=== PATIENT | male | born 1995 | race Caucasian/White ===

== ENCOUNTER 2022-02-01 01:48 | Emergency (ER) | payer SELFPAY ==
[~2022-02-01] VITALS: Ht 172.7 cm; Wt 80.3 kg
[2022-02-01 01:55] VITALS: BP 138/75
--- NOTE | 2022-02-01 01:55 | NUR ---
ARRIVAL AMBULATED TO ROOM. 24 HOURS AGO ABDOMINAL PAIN/CRAMPING, WITH NNAUSEA/VOMNITING, CHEST PAIN, COUGH, AFEBRILE. C/O ABDOMINAL PAIN 6/10 ON NUMERICAL SCALE. ALERT AND ORIENTED X3. GAIT STEADY. DR. BAIN AT BEDSIDE. AWAITING ORDERS AT THIS TIME. RR-20, O2 SAT 100%, HR-91, B/P 138/75.
--- NOTE | 2022-02-01 02:19 | ER.PDOC ---
General Chief Complaint: Dyspnea/Respdistress Stated Complaint: ABD & CHEST PAIN Time seen by MD: 01:55 Source: patient Exam Limitations: no limitations History of Present Illness Initial Comments This 26-year-old male stated that he was sent in by his boss to make sure he does not have COVID. Patient complains of having abdominal pain and chest pain but on further questioning patient had nausea vomiting and diarrhea that started 24 to 26 hours ago. He states he had 2 bouts of just profuse watery diarrhea. He stated that he had multiple episodes of vomiting where he was just dry heaving after his stomach was empty. Subsequent to all of his vomiting, he has had chest pain that it hurts when he takes a deep breath or twists or turns certain ways. Patient states that he still has some nausea but has not had any vomiting for at least 6 hours. He has not had diarrhea for "many hours. He has no other acute complaints. Patient states that he is here only because his boss wanted to make sure he did not have COVID and they had to get checked. Patient has no symptoms suggestive of COVID. Patient indicated he did get both Moderna shots December of last year. Severity/Quality: moderate, cramping, other (Right now he has some vague cramping sensation still present but no serious pain ever throughout the whole process but he did have the nausea and vomiting and diarrhea as noted above) Abdominal Pain Onset Location: Epigastric Associated Symptoms (vomiting): freq vomitng Associated Symptoms (diarrhea): mild, watery Allergies: Coded Allergies: No Known Allergies (Unverified , 02/01/22) Vital Signs First Vital Signs Date Time Temp Pulse Resp B/P (MAP) Pulse Ox O2 Delivery O2 Flow Rate FiO2 02/01/22 01:55 98.1 91 20 100 Last Vital Signs Date Time Temp Pulse Resp B/P (MAP) Pulse Ox O2 Delivery O2 Flow Rate FiO2 02/01/22 01:55 98.1 91 20 100 Past Medical History Medical History: no pertinent history Surgical History: other Social History Smoking: cigarettes, greater than 1 pack/day Alcohol Use: occassionally Drug Use: marijuana Constitutional: denies no symptoms reported, denies see HPI, denies chills, denies diaphoresis, denies fever, denies malaise, denies weakness, denies other EENTM: denies no symptoms reported, denies see HPI, denies eye pain, denies blurred vision, denies tearing, denies double vision, denies ear pain, denies ear discharge, denies nose pain, denies nose congestion, denies throat pain, denies throat swelling, denies mouth pain, denies mouth swelling, denies other Respiratory: denies no symptoms reported, denies see HPI, denies cough, denies orthopnea, denies shortness of breath, denies SOB with exertion, denies SOB at rest, denies stridor, denies wheezing, denies other Cardiovascular: see HPI, chest pain Gastrointestinal: see HPI, abdominal pain, diarrhea, nausea, vomiting Genitourinary: denies no symptoms reported, denies see HPI, denies burning, denies dysuria, denies discharge, denies frequency, denies flank pain, denies hematuria, denies incontinence, denies pain, denies urgency, denies other Musculoskeletal: denies no symptoms reported, denies see HPI, denies back pain, denies gout, denies joint pain, denies joint swelling, denies muscle pain, denies muscle stiffness, denies neck pain, denies other Skin: denies no symptoms reported, denies see HPI, denies change in color, denies change in hair/nails, denies dryness, denies lesions, denies lumps, denies rash, denies other Psychiatric/Neurological: denies no symptoms reported, denies see HPI, denies anxiety, denies depressed, denies emotional problems, denies headache, denies numbness, denies paresthesia, denies pre-existing deficit, denies seizure, denies tingling, denies tremors, denies weakness, denies other Endocrine: denies no symptoms reported, denies see HPI, denies excessive sweating, denies flushing, denies intolerance to cold, denies intolerance to heat, denies increased hunger, denies increased thrist, denies increased urine, denies unexplained weight gain, denies unexplaned weight loss, denies other Hematologic/Lymphatic: denies no symptoms reported, denies see HPI, denies anemia, denies blood clots, denies easy bleeding, denies easy bruising, denies swollen glands, denies other Physical Exam General Appearance: No Apparent Distress, WD/WN HEENT: PERRL/EOMI, Normal ENT Inspection, TMs Normal, Pharynx Normal Neck: Non-Tender, Full Range of Motion, Supple, Normal Inspection Respiratory: lungs clear, normal breath sounds, no respiratory distress, no accessory muscle use, other (Patient has reproducible chest wall pain on palpation of the chest.) Cardiovascular: Normal Peripheral Pulses, Regular Rate, Rhythm, No Edema, No Gallop, No JVD, No Murmur Gastrointestinal: No Organomegaly, No Pulsatile Mass, Hyperactive bowel sounds, Tenderness (Vague tenderness but no guarding masses or rebound) Rectal: Normal Exam Back: Normal Inspection Extremities: Normal Range of Motion 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 He stated he can get medications from his aunt if he is needed it. Duration or Time Spent with Pa: 10m Return to Work/School Can a patient return to work?: Yes TAYLOR BAIN MD Feb 01, 2022 02:19
[2022-02-01 02:25] VITALS: BP 121/56
== END 2022-02-01 02:25 | disposition home or self-care (01) ==
LOC: ER 01:48
DX: K52.9 Noninfective gastroenteritis and colitis, unspecified (principal); F10.20 Alcohol dependence, uncomplicated; F12.90 Cannabis use, unspecified, uncomplicated; F17.210 Nicotine dependence, cigarettes, uncomplicated
CPT/HCPCS: 99281